=== PATIENT | female | born 1970 | race Two or more races ===

== ENCOUNTER 2018-08-05 11:40 | Emergency (ER) | payer SELFPAY ==
[~2018-08-05] VITALS: Ht 157.5 cm; Wt 68.0 kg
[2018-08-05 13:50] LABS: Urine Pregnacy Test Negative (Negative)
[2018-08-05 13:52] LABS: Urine Amorphous Crystal MANY /hpf (None Seen); Urine Bacteria FEW /hpf (None Seen); Urine Blood TRACE /uL (Negative); Urine Mucus FEW (None Seen); Urine Specific Gravity 1.027 (1.001-1.035); Urine WBC 5 /hpf (0 - 5)
[2018-08-05 13:54] LABS: Basophils # (auto) 0 uL; Basophils % (auto) 0.2 % (0.0-2.0); Eosinophils # (auto) 0 uL; Eosinophils % (auto) 0.5 % (0.0-7.0); Hemoglobin 12.8 g/dL (12.2-16.2); Lymphocytes # (auto) 1.8 uL; Lymphocytes % (auto) 17.3 % (10.0-50.0); Mean Corpuscular Hgb Conc. 32.8 g/dL (32.0-36.0); Mean Corpuscular Volume 82.3 fL (80.0-100.0); Monocytes # (auto) 0.6 uL; Monocytes % (auto) 5.9 % (0.0-12.0); Neutrophils # (auto) 7.9 uL; Neutrophils % (auto) 76.1 % (37.0-80.0); Platelet Count (auto) 248 10^3/uL (140-450); Red Blood Cells 4.74 10^6/uL (4.0-5.20); White Blood Cell 10.3 10^3/uL (4.4-10.8)
[2018-08-05 14:04] LABS: Amphetamine Screen, Urine NEGATIVE (NEGATIVE); Barbiturate Scree,Urine NEGATIVE (NEGATIVE); Benzodiazephine Screen, Urine NEGATIVE (NEGATIVE); Cannabinoid Screen, Urine NEGATIVE (NEGATIVE); Cocaine Screen, Urine NEGATIVE (NEGATIVE); Opiate Scree,Urine NEGATIVE (NEGATIVE); Phencyclidine Screen, Urine NEGATIVE (NEGATIVE)
[2018-08-05 14:13] LABS: Albumin 3.5 g/dL (3.4-5.0); Anion Gap 7 (5-15); Aspartate Aminotransferase 16 U/L (15-37); BUN/Creatinine Ratio 7.8; Blood Urea Nitrogen 8 mg/dL (7-18); Calcium 8.2 mg/dL (8.5-10.1); Carbon Dioxide 25 mmol/L (21-32); Chloride 106 mmol/L (98-107); GFR African American 74 mL/min; GFR Non-African American 61 mL/min; Glucose 90 mg/dL (74-106); Sodium 138 mmol/L (136-145)
[2018-08-05 14:22] LABS: Alanine Aminotransferase 23 U/L (13-56); Alkaline Phosphatase 37 U/L (45-117); Bilirubin, Total 0.4 mg/dL (0.2-1.0); Total Protein 7.9 g/dL (6.4-8.2)
[2018-08-05 14:30] VITALS: BP 112/79
== END 2018-08-05 14:47 | disposition home or self-care (01) ==
LOC: ER 11:40
DX: R07.89 Other chest pain (principal); N39.0 Urinary tract infection, site not specified; Z98.51 Tubal ligation status
CPT/HCPCS: 36415; 71045; 80053; 80307; 81001; 81025; 83735; 84484; 85025; 94761